=== PATIENT | female | born 1985 ===

== ENCOUNTER 2016-11-11 02:05 | Emergency (ER) | payer MEDICAID, SELFPAY ==
[2016-11-11 02:41] VITALS: BMI 25.9
[2016-11-11 02:59] LABS: RBC URINE 2 /hpf (0-3); URINE BACTERIA RARE (<OCC); URINE BILIRUBIN NEGATIVE (NEGATIVE); URINE BLOOD NEGATIVE (NEGATIVE); URINE COLOR Straw (YELLOW); URINE GLUCOSE (UA) NORMAL (Normal); URINE KETONE NEGATIVE (NEGATIVE); URINE LEUKOCYTE ESTERASE 3+ Leu/uL (Negative); URINE PROTEIN NEGATIVE (NEGATIVE); URINE UROBILINOGEN NORMAL mg/dL (0.2-1.0); WBC URINE 71 /hpf (0-5)
--- NOTE | 2016-11-11 03:41 | OBHP ---
Datetime: 11/11/2016 02:55 IP Adm Impression: Term, intrauterine ; No Active Labor IP Admit Plan: Observation/Evaluation Admit Comment, IP Provider: IUP at 37.5 wks presents here today c/o maternal discomfort with some pe lvic cramps. She denies any VB or LOF. Care at [facility]. [place]- Occasional intermittent contractions, FHR- Category 1, Cx- Ft/30/-3 Assessment: IUP at 37wks with Infrequent contractions. UTI Plan: UA Recheck in 1 hour for labor. Pt reexamined after 1 hour, No cervical chane. UA- LE 3+. Pt reports she is currently taking Keflex for UTI. She was asked to continue taking the antibiotic s and f/u with regular OB. Labor instructions given. Plan: D/C Home.am Extremities - PN: Normal Abdomen - PN: Normal Back - PN: Normal Lungs - PN: Normal Heart - PN: Normal Neurologic - PN: Normal General - PN: Normal Presentation-Admit: Vertex FHR - Baseline A Provider: 130s Membranes, Provider: Intact Contraction Comments Provider: Irregular Comments, ACOG Physical Exam: Abd: Soft, NT, BS- present Gestation - Est Wks by US: 37.5 EGA AdmitDate IP: 37.5 Vital Signs Provider: Reviewed IP Chief Complaint: Maternal discomfort NICHD Variability Prov Fetus A: Moderate 6-25bpm NICHD Accel Fetus A IP Provider: 15X15 FHR Category Provider Fetus A: Category I NICHD Decel Fetus A IP Provider: None Dilatation, Provider: FT Effacement, Provider: 30 Station, Provider: -3 Genitourinary Exam: Normal
== END 2016-11-11 03:44 | disposition home or self-care (01) ==
LOC: C.EROB 02:05
DX: O26.893 Other specified pregnancy related conditions, third trimester (principal); O23.43 Unspecified infection of urinary tract in pregnancy, third trimester; Z3A.37 37 weeks gestation of pregnancy

== ENCOUNTER 2016-11-15 10:37 | Inpatient (IN) | payer MEDICAID ==
[2016-11-15] MEDS ORDERED: Lactated Ringer's 1,000 ML IV SCH (11:00)
[2016-11-15] MEDS ORDERED: Oxytocin 20 units in LR 2,000 ML IV ONE (11:11)
[2016-11-15] MEDS ORDERED: Lidocaine 2% Inj (20ml) ONE (11:11)
--- NOTE | 2016-11-15 11:21 | OBADHP ---
Datetime: 11/15/2016 11:14 Admit Comment, IP Provider: chief compalint-contractions HPI 31 y/o at 38.2 wga with c/o contractions.patient denies nausea, vomiting, headache, chest pain, shortness of breath, numbness or tingling in hands and feet course uncomplcated; UTI in october 2016 PMH denies PSH cholecystectomy OBGYN HX ; NVDX2 Social hx denies tobacco,alcohol or illicit drug use Exam see exam section A/P 31 y/o at 38.2 wga in labor.GBS negative -see orders Pelvic Type - PN: Adequate Extremities - PN: Normal Abdomen - PN: Normal Back - PN: Normal Lungs - PN: Normal Heart - PN: Normal Neurologic - PN: Normal General - PN: Normal Weight - Estimated: 3200 Presentation-Admit: Vertex FHR - Baseline A Provider: 150 Contraction Comments Provider: irregular Gestation - Est Wks by US: 38.2 IP Hx Assessment: The History has been Reviewed and is Current Vital Signs Provider: Reviewed; Within Normal Limits IP Chief Complaint: Uterine contractions NICHD Variability Prov Fetus A: Moderate 6-25bpm NICHD Decel Fetus A IP Provider: None Dilatation, Provider: 7-8 Effacement, Provider: 90 Station, Provider: 0 Genitourinary Exam: Normal DTRs - PN: Normal EGA AdmitDate IP: 38.2 IP Adm Impression: Term, intrauterine ; Active labor IP Admit Plan: Admit to unit Datetime: 11/11/2016 02:55 Membranes, Provider: Intact Comments, ACOG Physical Exam: Abd: Soft, NT, BS- present NICHD Accel Fetus A IP Provider: 15X15 FHR Category Provider Fetus A: Category I
[2016-11-15 11:46] LABS: BASO % 0.2 % (0.0-2.0); EOS % 0.2 % (0.0-4.0); HEMATOCRIT 35.8 % (34.0-47.0); LYMPH # 3.2 K/uL (1.0-4.3); LYMPH % 34.7 % (20.0-40.0); MEAN CELL VOLUME 78.6 fL (81.0-99.0); MEAN CORPUSCULAR HEMOGLOBIN 24.1 pg (27.0-31.0); MEAN CORPUSCULAR HGB CONC 30.6 g/dL (33.0-37.0); MONO # 0.5 K/uL (0.0-0.8); MONO % 5.7 % (0.0-10.0); NRBC % 0.1 % (0.0-2.0); RED CELL DISTRIBUTION WIDTH 16.9 % (11.5-14.5); WHITE BLOOD COUNT 9.3 K/uL (4.8-10.8)
--- NOTE | 2016-11-15 12:04 | OBDS ---
DELIVERY PERSONNEL Delivery Doctor: Reuben Soriano MD Scrub Nurse: Laxmi Li Quality Technician: Annie White RN MATERNAL INFORMATION Delivery Anesthesia: None Medications in Delivery: Pitocin 20 units IV Estimated Blood Loss (ml): 300 Placenta Cultured: No Maternal Complications: None RN Comments: 9-9.Liveborn Baby Girl. Provider Comments: of female from KAMRAN position.Body and shoulders delivered without diffi culty.Cord clamped and cut.cord blood collected.Placenta spontaneously delivered .first degree perien al laceration repaured with 2-0 chromic.Fundus firm.patient stable .apgars 9/9 at 1 and 5 minof life LABOR SUMMARY EDC: 11/27/2016 00:00 No. Babies in Womb: 1 Attempted: No Labor Anesthesia: None LABOR INFORMATION Reason for Induction: Not Applicable Onset of Labor: 11/14/2016 21:00 Complete Dilatation: 11/15/2016 11:45 Oxytocin: N/A Group B Beta Strep: Negative Antibiotics # of Doses: 9 Antibiotics Time of Last Dose: 9 Steroids Given: None Reason Steroids Not Administered: Not Applicable MEMBRANES Membranes Rupture Method: Spontaneous Rupture of Membranes: 11/15/2016 11:44 Length of Rupture (hrs): 0.10 Amniotic Fluid Color: Clear Amniotic Fluid Amount: Moderate Amniotic Fluid Odor: Normal STAGES OF LABOR Stage 1 hrs: 14 Stage 1 min: 45 Stage 2 hrs: 0 Stage 2 min: 5 Stage 3 hrs: 0 Stage 3 min: 7 Total Time in Labor hrs: 14 Total Time in Labor min: 57 VAGINAL DELIVERY Episiotomy: None Laceration Extension: First Degree Laceration Type: Perineal Laceration Repair: Yes Laceration Repair Note: first degree perienal laceration repaured with 2-0 chromic Initial Vag Sponge Count: 10 Final Vag Sponge Count: 10 Initial Vag Sharps Count: 3 Final Vag Sharps Count: 3 Sponge Count Correct: Yes; Vaginal Sweep Performed Sharps Count Correct: Yes Count Comment: 2 needle + 1 suture needle CSECTION DELIVERY Primary Indication: N/A Secondary Indication: N/A CSection Urgency: N/A CSection Incidence: N/A Labor: N/A Elective: N/A CSection Incision: N/A BABY A INFORMATION Delivery Date/Time: 11/15/2016 11:50 Method of Delivery: Vaginal Born in Route : No : N/A Forceps: N/A Vacuum Extraction: N/A Shoulder Dystocia : No SHOULDER DYSTOCIA BABY A Infant Delivery Date/Time: 11/15/2016 11:50 PRESENTATION/POSITION BABY A Presentation: Cephalic Cephalic Presentation: Vertex Vertex Position: Right Occipital Anterior Breech Presentation: N/A PLACENTA INFORMATION BABY A Placenta Delivery Time : 11/15/2016 11:57 Placenta Method of Delivery: Spontaneous Placenta Status: Delivered SCORES BABY A Heart Rate 1 min: >100 bpm Resp Effort 1 min: Good Cry Reflex Irritability 1 min: Cough or Sneeze or Pulls Away Muscle Tone 1 min: Active Motion Color 1 min: Body [place], Extremities Blue Resuscitation Effort 1 min: N/A SCORE 1 MIN: 9 Heart Rate 5 min: >100 bpm Resp Effort 5 min: Good Cry Reflex Irritability 5 min: Cough or Sneeze or Pulls Away Muscle Tone 5 min: Active Motion Color 5 min: Body [place], Extremities Blue Resuscitation Effort 5 min: N/A SCORE 5 MIN: 9 INFANT INFORMATION BABY A Gestational Age at Delivery: 38.2 Gestational Status: Term Outcome : Liveborn Infant Condition : Stable Sex: Female IDENTIFICATION/MEDS BABY A ID Band Number: [id number] ID Band Location: Left Leg; Left Arm Sensor Applied: Yes Sensor Number: [id number] Sensor Location : Cord Clamp Vitamin K Given : Not Given Erythromycin Given: Not Given WEIGHT/LENGTH BABY A Infant Birthweight (gms): 2790 Weight (lb): 6 Infant Weight (oz): 2 Length Inches: 19.00 Infant Length cms: 48.3 CORD INFORMATION BABY A No. Cord Vessels: 3 Nuchal Cord : N/A Cord Blood Taken: Yes Infant Suction: Mouth; Nose ASSESSMENT BABY A Complications: None Physical Findings at Delivery: Within Normal Limits Respirations: Appears Normal Senior Dentist/ALS Called : No Care By: Kanchan GRESHAM Transferred To: Nursery
[2016-11-15] MEDS ORDERED: Oxycodone/Acetaminophen 5/325 mg Tab PO PRN ×2 (12:06)
[2016-11-15] MEDS ORDERED: Benzocaine/Menthol 20%-0.5% Topical Spray (60 ml) TOP PRN (12:06)
[2016-11-16 07:37] LABS: BASO % 0.3 % (0.0-2.0); EOS % 0.2 % (0.0-4.0); LYMPH # 2.7 K/uL (1.0-4.3); LYMPH % 25.2 % (20.0-40.0); MEAN CELL VOLUME 78.8 fL (81.0-99.0); MEAN CORPUSCULAR HEMOGLOBIN 24.6 pg (27.0-31.0); MEAN CORPUSCULAR HGB CONC 31.2 g/dL (33.0-37.0); MEAN PLATELET VOLUME 9.6 fL (7.2-11.7); MONO # 0.6 K/uL (0.0-0.8); MONO % 5.9 % (0.0-10.0); RED CELL DISTRIBUTION WIDTH 17.4 % (11.5-14.5); WHITE BLOOD COUNT 10.8 K/uL (4.8-10.8)
[2016-11-16] MEDS: Multiple Vitamins Tab PO SCH (09:28)
--- NOTE | 2016-11-16 16:39 | OBPPN ---
Datetime: 11/16/2016 16:30 PP Pain Prov: Within normal limits PP Nausea Prov: Denies PP Flatus Prov: Yes PP BM Prov: No PP Breasts Prov: Normal PP Heart Prov: Normal PP Lungs Prov: Normal PP Abdomen/Uterus Prov: Normal PP Lochia Prov: Normal PP Vulva/Perineum Prov: Normal PP CVA Tenderness Prov: Normal PP Extremities Prov: Normal PP C/S Incision Prov: Not Applicable PP Progress Prov: Normal PP Comments Phys Exam Prov: Skin: warm, dry, intact Breasts: no cracked nipples Abdomen: Soft, Fundus firm, mobile, non tender, 18 weeks. Mild lochia rubra Extremities: no calf tenderness, cyanosis or edema All ohter systems reviewed and are negative PP Impression Prov: Normal progression PP Progress Note Prov: Patient seen and evaluated approximately 0845 hours. exclusivel y. Denies nausea, vomiting; dizziness, palpitations. Voiding and ambulating. P.E.: as above. Small-framed, in NAD. Awake, alert, oriented to time, person and place - PPD#1 .. Rh(+) Assessment: PPD#1, 31 y.o. P3013, S/P . Afebrile, vital signs stable. Anemia noted; asymtomati c and hemodynamically stable. Clinically stable Plan: 1) Continue iron 2) Anticipate discharge home 11/17/16 Vital Signs Provider PP: Reviewed; Within Normal Limits
[2016-11-17 08:02] VITALS: BP 107/69; PULSE 79; RESP 18; TEMP 98.5; O2SAT 99
--- NOTE | 2016-11-17 09:10 | OBPPN ---
Datetime: 11/17/2016 09:03 PP Pain Prov: Within normal limits PP Nausea Prov: Denies PP Flatus Prov: No PP BM Prov: No PP Breasts Prov: Normal PP Heart Prov: Normal PP Lungs Prov: Normal PP Abdomen/Uterus Prov: Normal PP Lochia Prov: Normal PP Vulva/Perineum Prov: Not Done PP CVA Tenderness Prov: Normal PP Extremities Prov: Normal PP C/S Incision Prov: Not Applicable PP Progress Prov: Normal PP Comments Phys Exam Prov: Sklin: warm, dry, intact. Abdomen: Non distended. Soft. (+) ABS. Fundus firm, mobile, non tender, 16 weeks. Minimal lochia rybra Extremities: no calf tenderness All other systems reviewed and are negative PP Impression Prov: Normal progression PP Plan Prov: Discharge PP Progress Note Prov: Patietn received sitting up in chair, in room 454; anxious to go home. Breasa tfeeding exclusively . Denies headaches, chest pain, dizziness, lightheadedness or palpitations P.E.: as above. Small, in NAD. Awake, alert, oriented to time, person and place Assessment: PPD#2, 31 yo P3013, S/P . Afebrile, vital signs stable. Anemic - asymptomatic and hemodynamically stable. Desires OCs for contraception. Clinically stable. Plan: 1) Discharge home 2) See full discharge instructions Vital Signs Provider PP: Reviewed; Within Normal Limits
--- NOTE | 2016-11-17 09:12 | OBDCSUM ---
Datetime: 11/11/2016 03:44 Disch Instr Activity: Normal activity; May be up to bathroom; May be up for meals; May Shower Discharge Diagnosis, Provider: Term Delivered Follow up in weeks, Provider: 6 weeks Contraception discussed, Prov: Yes Disch Activity Restrictions: No lifting; No sexual activity; Nothing in vagina - [place], tampon s, douche Discharge Diagnosis Prov Other: Anemia Contraception counseling Contraception after Delivery: Control Pill/Patch
[2016-11-17] MEDS: Multiple Vitamins Tab PO SCH (09:30)
== END 2016-11-17 11:00 | disposition home or self-care (01) | DRG 372 ==
LOC: C.EROB 10:37 → C.4D 11:03 → C.4M 13:53
PROVIDERS: ADMIT Student in an Organized Health Care Education/Training Program; ATTEND Student in an Organized Health Care Education/Training Program
PROC: 10E0XZZ Delivery of Products of Conception, External Approach (ICD-10-PCS; principal; 2016-11-15)
PROC: 0HQ9XZZ Repair Perineum Skin, External Approach (ICD-10-PCS; 2016-11-15)
DX: O75.3 Other infection during labor (principal); O90.81 Anemia of the puerperium; O70.0 First degree perineal laceration during delivery; Z3A.38 38 weeks gestation of pregnancy; Z37.0 Single live birth

== ENCOUNTER 2018-10-15 15:47 | Observation (INO) | payer MEDICAID, OTHER ==
[2018-10-15 15:47] VITALS: BMI 25.9
--- NOTE | 2018-10-15 16:54 | C.PDOC ---
History Of Present Illness Patient is a 33 year old female, s/p cholecystectomy in 2009, who presents to the ED c/o pain that wraps around right flank to right groin area. Patient rates the pain as an 8/10 and says it is increased with movement and walking. She denies any nausea, vomiting, diarrhea, fever, chills, hematuria, dysuria, cough, runny nose, or congestion. Time Seen by Provider: 10/15/18 16:27 Chief Complaint (Nursing): Abdominal Pain History Per: Patient History/Exam Limitations: no limitations Pain Scale Rating Of: 8 Quality Of Discomfort: "Pain" Associated Symptoms: denies: Fever, Chills, Nausea, Vomiting, Diarrhea, Urinary Symptoms Exacerbating Factors: Movement, Walking Past Medical History Reviewed: Historical Data, Nursing Documentation, Vital Signs Vital Signs: Last Vital Signs Temp 98.6 F 10/15/18 15:56 Pulse 86 10/15/18 15:56 Resp 16 10/15/18 15:56 BP 101/65 10/15/18 15:56 Pulse Ox 100 10/15/18 15:56 - Medical History PMH: No Chronic Diseases Surgical History: Cholecystectomy - [facility] Procedures DELIVERY OF PRODUCTS OF CONCEPTION, EXTERNAL APPROACH (11/15/16) EPISIOTOMY (12/26/14) REPAIR PERINEUM SKIN, EXTERNAL APPROACH (11/15/16) Family History: States: No Known Family Hx - Social History Hx Tobacco Use: No Hx Alcohol Use: No Hx Substance Use: No - Immunization History Hx Tetanus Toxoid Vaccination: No Hx Influenza Vaccination: No Hx Pneumococcal Vaccination: No Review Of Systems Constitutional: Negative for: Fever, Chills ENT: Negative for: Nose Discharge, Nose Congestion Respiratory: Negative for: Cough Gastrointestinal: Positive for: Other (pain wrapping from right flank to right groin ). Negative for: Nausea, Vomiting, Diarrhea Genitourinary: Negative for: Dysuria, Hematuria Physical Exam - Physical Exam Appears: Non-toxic, No Acute Distress, Other (alert and awake ) Skin: Warm, Dry Head: Atraumatic, Normacephalic Oral Mucosa: Moist Neck: Normal ROM, Supple Cardiovascular: Rhythm Regular, No Murmur Respiratory: Normal Breath Sounds, No Rales, No Rhonchi, No Wheezing Gastrointestinal/Abdominal: Soft, Tenderness (LRQ tenderness below McBurney's point) Back: Vertebral Tenderness (slight costovertebral angle tenderness ) Pelvic: Normal External Exam, No Vaginal Bleeding, No Vaginal Discharge, No Cervical Motion Tenderness, No Adnexal Tenderness Extremity: Normal ROM Neurological/Psych: Oriented x3 ED Course And Treatment - Laboratory Results Result Diagrams: 10/15/18 17:17 10/15/18 17:17 O2 Sat by Pulse Oximetry: 100 (on RA) Pulse Ox Interpretation: Normal Medical Decision Making Medical Decision Making: Plan: CAT A&P Urine Culture IV FLuids Toradol 30mg IVp Omnipaque 50ml PO Differential diagnosis: appendicitis vs. ovarian pathology Disposition - Disposition Disposition Time: 18:42 Condition: STABLE Forms: [employer] (Japanese) - Clinical Impression Clinical Impression: Abdominal pain - Scribe Statement The provider has reviewed the documentation as recorded by the Scribtano Bain All medical record entries made by the Scribe were at my direction and personally dictated by me. I have reviewed the chart and agree that the record accurately reflects my personal performance of the history, physical exam, medical decision making, and the department course for this patient. I have also personally directed, reviewed, and agree with the discharge instructions and disposition. Physician Patient Turnover Patient Signed Over To: Steven Low Handoff Comments: Patient pending CT abdomen, r/o appe vs renal colic vs INDUSTRIAL ENGINEERING DIRECTOR pathology
[2018-10-15] MEDS ORDERED: Iohexol 240 (50 ml) PO STA (17:03)
[2018-10-15] MEDS ORDERED: Sodium Chloride 0.9% 1,000 ML IV ONE (17:03)
[2018-10-15 17:21] LABS: BASO % 0.2 % (0.0-2.0); EOS % 0.4 % (0.0-4.0); HEMOGLOBIN 11.6 g/dL (11.0-16.0); LYMPH # 2.9 K/uL (1.0-4.3); LYMPH % 30.4 % (20.0-40.0); MEAN CELL VOLUME 83.3 fL (81.0-99.0); MEAN CORPUSCULAR HGB CONC 32.3 g/dL (33.0-37.0); MEAN PLATELET VOLUME 9.4 fL (7.2-11.7); MONO # 0.6 K/uL (0.0-0.8); MONO % 5.9 % (0.0-10.0); NEUT % 63.1 % (50.0-75.0); RBC 4.31 Mil/uL (3.80-5.20); WHITE BLOOD COUNT 9.4 K/uL (4.8-10.8)
[2018-10-15 17:30] LABS: HCG,QUALITATIVE URINE NEGATIVE (NEGATIVE); SQUAMOUS EPITHIAL 2 /hpf (0-5); URINE BACTERIA RARE (<OCC); URINE BILIRUBIN NEGATIVE (NEGATIVE); URINE BLOOD 1+ (NEGATIVE); URINE CLARITY Clear (Clear); URINE COLOR Yellow (YELLOW); URINE GLUCOSE (UA) NORMAL (Normal); URINE LEUKOCYTE ESTERASE NEG Leu/uL (Negative); URINE PROTEIN NEGATIVE (NEGATIVE)
[2018-10-15 17:35] LABS: ALB/GLOB RATIO 1.4 (1.0-2.1); ALBUMIN 4.2 g/dL (3.5-5.0); ALT/SGPT 9 U/L (9-52); AST/SGOT 14 U/L (14-36); BLOOD UREA NITROGEN 6 mg/dL (7-17); CALCIUM 8.3 mg/dl (8.6-10.4); GFR NON-AFRICAN AMERICAN > 60
[2018-10-15] MEDS ORDERED: Iohexol 240 (50 ml) ONE (17:41)
[2018-10-15] MEDS ORDERED: Iohexol 350mg/ml 100 ML ONE (17:48)
--- NOTE | 2018-10-15 22:24 | CP.PCM.CON ---
History of Present Illness - History of Present Illness History of Present Illness: SURGERY CONSULT NOTE FOR DR. CARRINGTON 33F presents with abdominal pain. Patient states pain has been ongoing since yesterday. She states the pain is in the epigastric region and radiates to the right abdomen. She denies any nausea or vomiting. She denies any fevers or chills. Patient has been eating fine and tolerating diet. She has been having normal bowel function. Denies any history of constipation or diarrhea. She had three children and is currently breast feeding. She has never had these symptoms before like this. PMH: Denies PSH: Open Cholecystectomy 2009 Social: denies tobacco, alcohol and illicit drug use Allergies: NKDA Past Patient History - Infectious Disease Hx of Infectious Diseases: None - Past Social History Smoking Status: Never Smoked - PSYCHIATRIC Hx Substance Use: No - SURGICAL HISTORY Hx Cholecystectomy: Yes - ANESTHESIA Hx Anesthesia: Yes Hx Anesthesia Reactions: No Meds Allergies/Adverse Reactions: Allergies Allergy/AdvReac Type Severity Reaction Status Date / Time No Known Allergies Allergy Verified 10/15/18 15:56 Physical Exam - Constitutional Appears: Non-toxic, No Acute Distress - Eye Exam Eye Exam: EOMI, PERRL - Respiratory Exam Respiratory Exam: Clear to Auscultation Bilateral, NORMAL BREATHING PATTERN - Cardiovascular Exam Cardiovascular Exam: REGULAR RHYTHM, +S1, +S2 - GI/Abdominal Exam GI & Abdominal Exam: Soft, Tenderness (Epigastric). absent: Distended, Firm, Guarding, Rebound, Rigid Additional comments: donna incision scar healed - Extremities Exam Extremities exam: Negative for: pedal edema, tenderness - Neurological Exam Neurological exam: Alert, Oriented x3 - Psychiatric Exam Psychiatric exam: Normal Affect, Normal Mood - Skin Skin Exam: Dry, Intact, Normal Color, Warm Results - Vital Signs Recent Vital Signs: Last Vital Signs Temp 98.2 F 10/15/18 21:01 Pulse 78 10/15/18 21:01 Resp 18 10/15/18 21:01 BP 96/60 L 10/15/18 21:01 Pulse Ox 98 10/15/18 21:01 - Labs Result Diagrams: 10/15/18 17:17 10/15/18 17:17 Labs: Laboratory Results - last 24 hr 10/15/18 10/15/18 10/15/18 17:17 17:17 17:17 WBC 9.4 RBC 4.31 Hgb 11.6 Hct 35.9 MCV 83.3 D MCH 27.0 MCHC 32.3 L RDW 15.0 H Plt Count 262 MPV 9.4 Neut % (Auto) 63.1 Lymph % (Auto) 30.4 Wirt % (Auto) 5.9 Eos % (Auto) 0.4 Baso % (Auto) 0.2 Neut # (Auto) 6.0 Lymph # (Auto) 2.9 Wirt # (Auto) 0.6 Eos # (Auto) 0.0 Baso # (Auto) 0.0 Sodium 136 Potassium 3.6 Chloride 100 Carbon Dioxide 28 Anion Gap 12 BUN 6 L Creatinine 0.4 L Est GFR ( Amer) > 60 Est GFR (Non-Af Amer) > 60 Random Glucose 90 Calcium 8.3 L Total Bilirubin 0.4 AST 14 ALT 9 D Alkaline Phosphatase 93 Total Protein 7.2 Albumin 4.2 Globulin 3.0 Albumin/Globulin Ratio 1.4 Urine Color Yellow Urine Clarity Clear Urine pH 7.0 Ur Specific [place] 1.005 Urine Protein Negative Urine Glucose (UA) Normal Urine Ketones Negative Urine Blood 1+ H Urine Nitrate Negative Urine Bilirubin Negative Urine Urobilinogen 2.0 H Ur Leukocyte Esterase Neg Urine WBC (Auto) < 1 Urine RBC (Auto) < 1 Ur Squamous Epith Cells 2 Urine Bacteria Rare Urine HCG, Qual Negative Assessment & Plan - Assessment and Plan (Free Text) Assessment: 33F with abdominal pain CT: intussusception, 2.1*2.3cm Pancreatic head lesion with dilation of distal BCD Plan: Regular diet Pain control Will need Ultrasound Will need CT Pancreatic protocol vs MRI GI consult necessary Explain to the patient her diagnosis and planned course of action including staying inpatient however she states she has nobody to watch her children at home and will prefer to come back for further evaluation. Further recs per Dr. Clyde Valle, PGY3
[2018-10-16] MEDS ORDERED: Morphine 4 MG/ML VIAL ONE (00:10)
[2018-10-16 01:55] VITALS: RESP 20
[2018-10-16] MEDS ORDERED: Gadodiamide 287 mg/ml 20 ml IV ONE (03:55)
[2018-10-16] MEDS ORDERED: Sodium Chloride 0.9% 1,000 ML IV ONE (05:23)
--- NOTE | 2018-10-16 06:08 | CP.PCM.HP ---
<Iza Mike P - Last Filed: 10/16/18 15:31> History of Present Illness - History of Present Illness History of Present Illness: H&P for Dr. Wright. 33 year old female presents to the ED complaining of severe R flank pain radiating to the RUQ that began 2 days ago. Pain is sharp and rated 8/10. Pain worsens with walking. She did not take anything at home for the pain. Patient states she had a similar pain years back when she was told that she had an inflamed pancreas. Pain is associated with chills. Patient denies fever, nausea, vomiting, diarrhea, constipation, hematochezia, melena, dysuria, hematuria, frequency, headache, dizziness, chest pain, palpitations and any other symptoms. PMHx: Past episode of pancreatitis PSHx: Denies Meds: none Allergies: NKDA Social: Denies tobacco, alcohol and illicit drugs. Family Hx: mother-HTN Review of Systems: -Gen: No fever, + chills, No headache, No lethargy, No weakness. -HEENT: No dizziness, No change in vision, No change in hearing, No sore throat, No dysphagia, No nasal congestion, No mucous. -Cardio: No chest pain, No palpitations, No lower extremity edema, No orthopnea. -Resp: No cough, No dyspnea, No hemoptysis, No wheezing, No pain on inspiration. -GI: + abdominal pain, No nausea/vomiting, No diarrhea/constipation, No hematochezia, No hematemesis. -: No dysuria, No urinary freq, No incontinence, No hematuria, No change in urinary stream. -MSK: No back pain, No muscle weakness, No radiating pain. -Skin: No itching, No rash, No lesions. -Neuro: No confusion, No numbness, No tingling, No focal weakness, No radicular pain, No syncope. Present on Admission - Present on Admission Any Indicators Present on Admission: No Past Patient History - Infectious Disease Hx of Infectious Diseases: None - Past Social History Smoking Status: Never Smoked - PSYCHIATRIC Hx Substance Use: No - SURGICAL HISTORY Hx Cholecystectomy: Yes - ANESTHESIA Hx Anesthesia: Yes Hx Anesthesia Reactions: No Meds Allergies/Adverse Reactions: Allergies Allergy/AdvReac Type Severity Reaction Status Date / Time No Known Allergies Allergy Verified 10/15/18 15:56 Physical Exam - Head Exam Head Exam: ATRAUMATIC, NORMOCEPHALIC - Eye Exam Eye Exam: EOMI, Normal appearance, PERRL - ENT Exam ENT Exam: Mucous Membranes Moist, Normal Exam - Neck Exam Neck exam: Positive for: Full Rom, Normal Inspection - Respiratory Exam Respiratory Exam: Clear to Auscultation Bilateral, NORMAL BREATHING PATTERN. absent: Rales, Rhonchi, Wheezes - Cardiovascular Exam Cardiovascular Exam: REGULAR RHYTHM, +S1, +S2 - Extremities Exam Extremities exam: Positive for: normal inspection, pedal pulses present. Negative for: calf tenderness, pedal edema, tenderness - Neurological Exam Neurological exam: Alert, CN II-XII Intact, Oriented x3 - Psychiatric Exam Psychiatric exam: Normal Affect, Normal Mood - Skin Skin Exam: Dry, Normal Color, Warm Additional comments: No jaundice Results - Vital Signs Recent Vital Signs: Last Vital Signs Temp 98.4 F 10/16/18 01:50 Pulse 71 10/16/18 01:50 Resp 20 10/16/18 01:50 BP 100/59 L 10/16/18 01:50 Pulse Ox 97 10/16/18 01:50 - Labs Result Diagrams: 10/16/18 06:41 10/16/18 06:41 Labs: Laboratory Results - last 24 hr 10/15/18 10/15/18 10/15/18 17:17 17:17 17:17 WBC 9.4 RBC 4.31 Hgb 11.6 Hct 35.9 MCV 83.3 D MCH 27.0 MCHC 32.3 L RDW 15.0 H Plt Count 262 MPV 9.4 Neut % (Auto) 63.1 Lymph % (Auto) 30.4 [place] % (Auto) 5.9 Eos % (Auto) 0.4 Baso % (Auto) 0.2 Neut # (Auto) 6.0 Lymph # (Auto) 2.9 [place] # (Auto) 0.6 Eos # (Auto) 0.0 Baso # (Auto) 0.0 Sodium 136 Potassium 3.6 Chloride 100 Carbon Dioxide 28 Anion Gap 12 BUN 6 L Creatinine 0.4 L Est GFR ( Amer) > 60 Est GFR (Non-Af Amer) > 60 Random Glucose 90 Calcium 8.3 L Total Bilirubin 0.4 AST 14 ALT 9 D Alkaline Phosphatase 93 Total Protein 7.2 Albumin 4.2 Globulin 3.0 Albumin/Globulin Ratio 1.4 Urine Color Yellow Urine Clarity Clear Urine pH 7.0 Ur Specific Backus 1.005 Urine Protein Negative Urine Glucose (UA) Normal Urine Ketones Negative Urine Blood 1+ H Urine Nitrate Negative Urine Bilirubin Negative Urine Urobilinogen 2.0 H Ur Leukocyte Esterase Neg Urine WBC (Auto) < 1 Urine RBC (Auto) < 1 Ur Squamous Epith Cells 2 Urine Bacteria Rare Urine HCG, Qual Negative Assessment & Plan - Assessment and Plan (Free Text) Assessment: 33 year old female admitted for pancreatic mass, CBD dilation, and intussception. Plan: Pancreatic mass CBD dilation Intussception -CT abdomen: -Abd US: f/u official read -Surgery, Dr. Tang consulted -GI, Dr. Baker consulted -F/u AM labs -NS @ 100 mls/hr -Hydromorphone 0.5mg IVP Q6H PRN PPx -SCDs -NPO -GI not indicated at this time Discussed with Dr. Wright. Iza Mike, PGY-1. <Yao Wright - Last Filed: 10/16/18 19:07> Results - Vital Signs Recent Vital Signs: Last Vital Signs Temp 98.3 F 10/16/18 16:30 Pulse 83 10/16/18 16:30 Resp 20 10/16/18 16:30 BP 103/63 10/16/18 16:30 Pulse Ox 100 10/16/18 16:30 - Labs Result Diagrams: 10/16/18 06:41 10/16/18 06:41 Labs: Laboratory Results - last 24 hr 10/16/18 10/16/18 10/16/18 06:41 06:41 09:45 WBC 6.1 RBC 3.55 L Hgb 9.7 L Hct 29.8 L MCV 84.0 MCH 27.3 MCHC 32.5 L RDW 15.2 H Plt Count 209 MPV 9.7 Neut % (Auto) 50.9 Lymph % (Auto) 41.3 H [place] % (Auto) 6.8 Eos % (Auto) 0.8 Baso % (Auto) 0.2 Neut # (Auto) 3.1 Lymph # (Auto) 2.5 [place] # (Auto) 0.4 Eos # (Auto) 0.1 Baso # (Auto) 0.0 PT 12.7 H INR 1.2 APTT 34 Sodium 136 Potassium 3.3 L Chloride 106 Carbon Dioxide 22 Anion Gap 12 BUN 6 L Creatinine 0.4 L Est GFR ( Amer) > 60 Est GFR (Non-Af Amer) > 60 Random Glucose 75 Lactic Acid Calcium 7.2 L Phosphorus 2.9 Magnesium 2.1 Iron TIBC % Saturation Ferritin 9.2 Total Bilirubin 0.4 AST 13 L ALT 13 Alkaline Phosphatase 71 Total Protein 5.6 L Albumin 3.0 L D Globulin 2.6 Albumin/Globulin Ratio 1.1 Lipase 27 Alpha Fetoprotein CA 19-9 Antigen 8.2 Vitamin B12 < 159 L Folate > 20.0 Hepatitis A IgM Ab Hep Bs Antigen Hep B Core IgM Ab Hepatitis C Antibody HIV 1&2 Antibody Screen 10/16/18 10/16/18 10/16/18 09:45 09:45 13:30 WBC RBC Hgb Hct MCV MCH MCHC RDW Plt Count MPV Neut % (Auto) Lymph % (Auto) [place] % (Auto) Eos % (Auto) Baso % (Auto) Neut # (Auto) Lymph # (Auto) [place] # (Auto) Eos # (Auto) Baso # (Auto) PT INR APTT Sodium Potassium Chloride Carbon Dioxide Anion Gap BUN Creatinine Est GFR ( Amer) Est GFR (Non-Af Amer) Random Glucose Lactic Acid 0.8 Calcium Phosphorus Magnesium Iron 27 L TIBC 369 % Saturation 7 L Ferritin Total Bilirubin AST ALT Alkaline Phosphatase Total Protein Albumin Globulin Albumin/Globulin Ratio Lipase Alpha Fetoprotein 0.9 CA 19-9 Antigen Vitamin B12 Folate Hepatitis A IgM Ab Hep Bs Antigen Hep B Core IgM Ab Hepatitis C Antibody HIV 1&2 Antibody Screen Negative 10/16/18 13:47 WBC RBC Hgb Hct MCV MCH MCHC RDW Plt Count MPV Neut % (Auto) Lymph % (Auto) [place] % (Auto) Eos % (Auto) Baso % (Auto) Neut # (Auto) Lymph # (Auto) [place] # (Auto) Eos # (Auto) Baso # (Auto) PT INR APTT Sodium Potassium Chloride Carbon Dioxide Anion Gap BUN Creatinine Est GFR ( Amer) Est GFR (Non-Af Amer) Random Glucose Lactic Acid Calcium Phosphorus Magnesium Iron TIBC % Saturation Ferritin Total Bilirubin AST ALT Alkaline Phosphatase Total Protein Albumin Globulin Albumin/Globulin Ratio Lipase Alpha Fetoprotein CA 19-9 Antigen Vitamin B12 Folate Hepatitis A IgM Ab Negative Hep Bs Antigen Negative Hep B Core IgM Ab Negative Hepatitis C Antibody Negative HIV 1&2 Antibody Screen Assessment & Plan - Date & Time Date: 10/16/18 (I have seen and examined the patient. I agree with the findings and plan of care as documented by Dr. Mike. Patient with intussusception, abdominal pain, CBD dilatation, and pancreatic mass seen on CT. Consult to surgery and GI. Symptomatic treatment. Monitor for acute changes.) Time: 19:06 Attending/Attestation - Attestation I have personally seen and examined this patient.: Yes I have fully participated in the care of the patient.: Yes I have reviewed all pertinent clinical information: Yes
[2018-10-16] MEDS ORDERED: Sodium Chloride 0.9% 1,000 ML IV SCH (06:30)
[2018-10-16 06:52] LABS: BASO % 0.2 % (0.0-2.0); EOS # 0.1 K/uL (0.0-0.7); EOS % 0.8 % (0.0-4.0); HEMOGLOBIN 9.7 g/dL (11.0-16.0); LYMPH # 2.5 K/uL (1.0-4.3); LYMPH % 41.3 % (20.0-40.0); MEAN CORPUSCULAR HEMOGLOBIN 27.3 pg (27.0-31.0); MEAN CORPUSCULAR HGB CONC 32.5 g/dL (33.0-37.0); MEAN PLATELET VOLUME 9.7 fL (7.2-11.7); MONO # 0.4 K/uL (0.0-0.8); MONO % 6.8 % (0.0-10.0); NEUT # 3.1 K/uL (1.8-7.0); NEUT % 50.9 % (50.0-75.0); RBC 3.55 Mil/uL (3.80-5.20); RED CELL DISTRIBUTION WIDTH 15.2 % (11.5-14.5); WHITE BLOOD COUNT 6.1 K/uL (4.8-10.8)
--- NOTE | 2018-10-16 07:33 | CP.PCM.PN ---
<Sydnie Palacio V - Last Filed: 10/16/18 17:44> Objective - Vital Signs/Intake and Output Vital Signs (last 24 hours): Temp Pulse Resp BP Pulse Ox 98.3 F 83 20 103/63 100 10/16/18 16:30 10/16/18 16:30 10/16/18 16:30 10/16/18 16:30 10/16/18 16:30 Intake and Output: 10/16/18 10/16/18 06:59 18:59 Intake Total 1000 Balance 1000 - Medications Medications: Current Medications Hydromorphone HCl (Dilaudid) 0.5 mg IVP Q6H PRN PRN Reason: Pain, severe (8-10) Sodium Chloride (Sodium Chloride 0.9%) 1,000 mls @ 200 mls/hr IV .Q5H CATRACHITO Last Admin: 10/16/18 14:19 Dose: 200 mls/hr Influenza Virus Vaccine (Flucelvax Quad [id number] Syr) 60 mcg IM .ONCE ONE Stop: 10/18/18 10:01 Lorazepam (Ativan) 0.5 mg IVP ONCE PRN PRN Reason: Anxiety Last Admin: 10/16/18 15:08 Dose: 0.5 mg - Labs Labs: 10/16/18 06:41 10/16/18 06:41 PT 12.7 SECONDS (9.7-12.2) H 10/16/18 09:45 INR 1.2 10/16/18 09:45 APTT 34 SECONDS (21-34) 10/16/18 09:45 Attending/Attestation - Attestation I have personally seen and examined this patient.: Yes I have fully participated in the care of the patient.: Yes I have reviewed all pertinent clinical information, including history, physical exam and plan: Yes Notes (Text): Patient seen, examined, and case discussed day-time resident. patient noted for abdominal pain on exam which she reports started one day ago. She reports she has had a cholecystectomy at [facility] in 2013? Patient reports her last period on october 02. GI and General surgery on board. patient is hesistant about the MRCP, she reports she wants to sleep through the test, will give anti-anxiety, and explained MRCP needed to see the belly better. 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 less likely pancreatic. * CT abdomen/pelvis (10/15/18): lobulated low attenuation structure noted adjacen t to the pancreatic head cannot be from the duodenum and pancreatic head. Suspicious round cystic structure at the joshua hepatis region/gallbadder fossa measures 1.6 cm. No evidence of intrahepatic biliary ductal dilatation or evidence of acute cholecystits. diffuse gastric and proximal small bowel thickening. At least 2 foci of small yuni intuscception. moderately dilated small bowel loops at the right upper abdomen demonstrate diffuse wall thickening. Suspicous for the small bowel malrotation associated with siwrl appearance of mesenteric vessels in the right abdomen. No evidence of hgi grade bowel obstruction * Gallbladder US (10/16/18): gallbladder is not clearly visulized. mildly echogenic liver. suspicious for small amount of fluid or cystic strucure at the gallbladder fossa. further evaluation by MRCP is suggested * Chest xray: no active disease * Lactic acid: 0.8 * AFP: 0.9 * CA 19-9: 8.2 2) Hypokalemia Assessment/Plan * monitor and replete 3) Anemia Assessment/Plan * check ferritin, reticulocyte count, iron studies 4) Low vitamin B12 Assessment/Plan 5) Hepatomegaly on CT scan Assessment/Plan * Hepatitis panel negative * HIV negative 6) Prophylactic measure * IV fluids * Dilaudid 0.5mg IVP Q6H PRN severe pain * scds b/l * protonix 40mg IV q daily for GI ppx * NPO diet * Hypoglycemic protocol * Accuchecks Q6H <Curtis Riggins - Last Filed: 10/16/18 19:08> Subjective - Date & Time of Evaluation Date of Evaluation: 10/16/18 Time of Evaluation: 10:00 - Subjective Subjective: Medicine progress note for Dr. Palacio Pt seen and examined at bedside. Pt resting comfortably. Denies complaints at this time. Denies fever, chills, chest pain, sob, abdominal pain, n/v/d, hematochezia, melena, headache, numbness, tingling, dizziness. Objective - Vital Signs/Intake and Output Vital Signs (last 24 hours): Temp Pulse Resp BP Pulse Ox 98.4 F 71 20 98/57 L 97 10/16/18 01:50 10/16/18 01:50 10/16/18 01:50 10/16/18 06:09 10/16/18 05:45 Intake and Output: 10/16/18 10/16/18 06:59 18:59 Intake Total 1000 Balance 1000 - Medications Medications: Current Medications Hydromorphone HCl (Dilaudid) 0.5 mg IVP Q6H PRN PRN Reason: Pain, severe (8-10) Sodium Chloride (Sodium Chloride 0.9%) 1,000 mls @ 100 mls/hr IV .Q10H CATRACHITO Last Admin: 10/16/18 06:45 Dose: 100 mls/hr Influenza Virus Vaccine (Flucelvax Quad [id number] Syr) 60 mcg IM .ONCE ONE Stop: 10/18/18 10:01 - Labs Labs: 10/16/18 06:41 10/15/18 17:17 - Constitutional Appears: Non-toxic, No Acute Distress - Head Exam Head Exam: ATRAUMATIC, NORMAL INSPECTION - Eye Exam Eye Exam: EOMI, Normal appearance. absent: Scleral icterus - ENT Exam ENT Exam: Mucous Membranes Moist - Respiratory Exam Respiratory Exam: Clear to Ausculation Bilateral. absent: Rales, Rhonchi, Wheezes, Stridor - Cardiovascular Exam Cardiovascular Exam: REGULAR RHYTHM, +S1, +S2 - GI/Abdominal Exam GI & Abdominal Exam: Soft, Tenderness (epigastric and LUQ tenderness), Normal Bowel Sounds. absent: Distended, Firm, Guarding, Rigid, Rebound - Extremities Exam Extremities Exam: Normal Capillary Refill, Normal Inspection. absent: Calf Tenderness, Pedal Edema, Tenderness - Back Exam Back Exam: NORMAL INSPECTION - Neurological Exam Neurological Exam: Alert, Awake, Oriented x3 - Psychiatric Exam Psychiatric exam: Normal Affect, Normal Mood - Skin Skin Exam: Dry, Normal Color, Warm Additional comments: (-) jaundice Assessment and Plan - Assessment and Plan (Free Text) Assessment: Abdominal Pain Abdominal Mass Assessment/plan * GI, Dr. Baker, on board help appreciated * General surgery, Dr. Tang, on board help appreciated * MCRP (10/16/18); mulilocular cystic mass at the level of ampulla/2nd duodenum without demonstrate enhancement. 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 less likely pancreatic. * CT abdomen/pelvis (10/15/18): lobulated low attenuation structure noted adjacent to the pancreatic head cannot be from the duodenum and pancreatic head. Suspicious round cystic structure at the joshua hepatis region/gallbadder fossa measures 1.6 cm. No evidence of intrahepatic biliary ductal dilatation or evidence of acute cholecystits. diffuse gastric and proximal small bowel thickening. At least 2 foci of small yuni intuscception. moderately dilated small bowel loops at the right upper abdomen demonstrate diffuse wall thickening. Suspicous for the small bowel malrotation associated with siwrl appearance of mesenteric vessels in the right abdomen. No evidence of hgi grade bowel obstruction * Gallbladder US (10/16/18): gallbladder is not clearly visulized. mildly echogenic liver. suspicious for small amount of fluid or cystic strucure at the gallbladder fossa. further evaluation by MRCP is suggested * Chest xray: no active disease * lipase normal at 27 * Lactic acid: 0.8 * AFP: 0.9 * CA 19-9: 8.2 Hypokalemia Assessment/Plan * monitor and replete Anemia Assessment/Plan * Iron low at 27, TIBC normal at 369, %sat is low at 7, ferritin normal at 9.2 * f/u reticulocyte count, iron studies Low vitamin B12 Assessment/Plan Hepatomegaly on CT scan Assessment/Plan * Hepatitis panel negative * HIV negative * GI following Prophylactic measure * IV fluids * Dilaudid 0.5mg IVP Q6H PRN severe pain * scds b/l * protonix 40mg IV q daily for GI ppx * NPO diet * Hypoglycemic protocol * Accuchecks Q6H
[2018-10-16 07:56] LABS: ALB/GLOB RATIO 1.1 (1.0-2.1); ALT/SGPT 13 U/L (9-52); AST/SGOT 13 U/L (14-36); BLOOD UREA NITROGEN 6 mg/dL (7-17); CALCIUM 7.2 mg/dl (8.6-10.4); GFR NON-AFRICAN AMERICAN > 60
--- NOTE | 2018-10-16 08:01 | CP.PCM.CON ---
<Virginia Henry - Last Filed: 10/16/18 10:57> History of Present Illness - History of Present Illness History of Present Illness: Gastroenterology Fellow/PGY6 Consult Note 33 year old female with PMH of open cholecystectomy 2009 and Pancreatitis (~2011, unclear etiology) presenting with epigastric pain. Patient describes eating a fried egg friday night followed by epigastric pain to right upper abdomen friday morning upon awakening. States the pain was more severe than pain associated with cholecystectomy and prior pancreatitis. At present, the pain has improved and is only present Denies nausea, vomiting, hematemesis, heartburn, acid reflux, indigestion, bloating, diarrhea, constipation, melena, hematochezia, unintentional weight loss, yellowing of skin/eyes, sick contacts, recent travel, or new medications. Patient has three children and is currently youngest child born in 2017 that is 22 months old. No prior EGD or colonoscopy. Family History- confirms no history of malignancies in any family members Social History- denies tobacco, alcohol, illicit drug use presently or in the past Surgical History- open cholecystectomy 2009 Review of Systems - Review of Systems Review of Systems: 12-point review of systems negative except for as above Past Patient History - Infectious Disease Hx of Infectious Diseases: None - Past Social History Smoking Status: Never Smoked - PSYCHIATRIC Hx Substance Use: No - SURGICAL HISTORY Hx Cholecystectomy: Yes - ANESTHESIA Hx Anesthesia: Yes Hx Anesthesia Reactions: No Meds Allergies/Adverse Reactions: Allergies Allergy/AdvReac Type Severity Reaction Status Date / Time No Known Allergies Allergy Verified 10/15/18 15:56 - Medications Medications: Current Medications Hydromorphone HCl (Dilaudid) 0.5 mg IVP Q6H PRN PRN Reason: Pain, severe (8-10) Sodium Chloride (Sodium Chloride 0.9%) 1,000 mls @ 100 mls/hr IV .Q10H CATRACHITO Last Admin: 10/16/18 06:45 Dose: 100 mls/hr Influenza Virus Vaccine (Flucelvax Quad 6898-1879 Syr) 60 mcg IM .ONCE ONE Stop: 10/18/18 10:01 Physical Exam - Constitutional Appears: Non-toxic, No Acute Distress - Head Exam Head Exam: ATRAUMATIC, NORMOCEPHALIC - Eye Exam Eye Exam: EOMI, PERRL. absent: Scleral icterus Pupil Exam: PERRL. absent: Miosis, Mydriatic - ENT Exam ENT Exam: Mucous Membranes Moist, Normal Oropharynx - Neck Exam Neck exam: Positive for: Full Rom, Normal Inspection - Respiratory Exam Respiratory Exam: Clear to Auscultation Bilateral. absent: Rales, Rhonchi, Wheezes - Cardiovascular Exam Cardiovascular Exam: RRR, +S1, +S2. absent: Gallop, Rubs - GI/Abdominal Exam GI & Abdominal Exam: Normal Bowel Sounds, Soft, Tenderness. absent: Distended, Guarding, Organomegaly, Rebound, Rigid Additional comments: mild epigastric and RUQ tenderness to palpation - Extremities Exam Extremities exam: Positive for: normal inspection. Negative for: pedal edema - Neurological Exam Neurological exam: Alert - Psychiatric Exam Psychiatric exam: Normal Affect, Normal Mood - Skin Skin Exam: Dry, Intact, Normal Color, Warm Results - Vital Signs Recent Vital Signs: Last Vital Signs Temp 98.4 F 10/16/18 01:50 Pulse 71 10/16/18 01:50 Resp 20 10/16/18 01:50 BP 98/57 L 10/16/18 06:09 Pulse Ox 97 10/16/18 05:45 - Labs Result Diagrams: 10/16/18 06:41 10/16/18 06:41 Labs: Laboratory Results - last 24 hr 10/15/18 10/15/18 10/15/18 17:17 17:17 17:17 WBC 9.4 RBC 4.31 Hgb 11.6 Hct 35.9 MCV 83.3 D MCH 27.0 MCHC 32.3 L RDW 15.0 H Plt Count 262 MPV 9.4 Neut % (Auto) 63.1 Lymph % (Auto) 30.4 [place] % (Auto) 5.9 Eos % (Auto) 0.4 Baso % (Auto) 0.2 Neut # (Auto) 6.0 Lymph # (Auto) 2.9 [place] # (Auto) 0.6 Eos # (Auto) 0.0 Baso # (Auto) 0.0 Sodium 136 Potassium 3.6 Chloride 100 Carbon Dioxide 28 Anion Gap 12 BUN 6 L Creatinine 0.4 L Est GFR ( Amer) > 60 Est GFR (Non-Af Amer) > 60 Random Glucose 90 Calcium 8.3 L Total Bilirubin 0.4 AST 14 ALT 9 D Alkaline Phosphatase 93 Total Protein 7.2 Albumin 4.2 Globulin 3.0 Albumin/Globulin Ratio 1.4 Urine Color Yellow Urine Clarity Clear Urine pH 7.0 Ur Specific [place] 1.005 Urine Protein Negative Urine Glucose (UA) Normal Urine Ketones Negative Urine Blood 1+ H Urine Nitrate Negative Urine Bilirubin Negative Urine Urobilinogen 2.0 H Ur Leukocyte Esterase Neg Urine WBC (Auto) < 1 Urine RBC (Auto) < 1 Ur Squamous Epith Cells 2 Urine Bacteria Rare Urine HCG, Qual Negative 10/16/18 06:41 WBC 6.1 RBC 3.55 L Hgb 9.7 L Hct 29.8 L MCV 84.0 MCH 27.3 MCHC 32.5 L RDW 15.2 H Plt Count 209 MPV 9.7 Neut % (Auto) 50.9 Lymph % (Auto) 41.3 H [place] % (Auto) 6.8 Eos % (Auto) 0.8 Baso % (Auto) 0.2 Neut # (Auto) 3.1 Lymph # (Auto) 2.5 [place] # (Auto) 0.4 Eos # (Auto) 0.1 Baso # (Auto) 0.0 Sodium Potassium Chloride Carbon Dioxide Anion Gap BUN Creatinine Est GFR ( Amer) Est GFR (Non-Af Amer) Random Glucose Calcium Total Bilirubin AST ALT Alkaline Phosphatase Total Protein Albumin Globulin Albumin/Globulin Ratio Urine Color Urine Clarity Urine pH Ur Specific [place] Urine Protein Urine Glucose (UA) Urine Ketones Urine Blood Urine Nitrate Urine Bilirubin Urine Urobilinogen Ur Leukocyte Esterase Urine WBC (Auto) Urine RBC (Auto) Ur Squamous Epith Cells Urine Bacteria Urine HCG, Qual Assessment & Plan - Assessment and Plan (Free Text) Assessment: 33 year old female with PMH of open cholecystectomy 2009 and Pancreatitis (~2011) presenting with epigastric pain. CT A/P PO/IV contrast showing 1.6cm joshua hepatis/gallbladder fossa cystic lesion, and a lobulated cystic lesion adjacent to pancreatic head and not from pancreatic head and descending duodenum, diffuse gastric and small bowel thickening with two foci of small bowel intussusception and suspicion for small bowel malrotation associated with swirl appearance of the mesenteric vessels in the right abdomen. No prior EGD or colonoscopy. Plan: -ordered MRCP & MRI Abdomen w/wo contrast for further delineation -Differential- duodenal mass, CBD lesion, pancreatic lesion- solid pseudopapillary neoplasm, MCN, IPMN, choledochoal cyst, cystadenoma -normal lipase, LFTs and bilirubin -surgery consult- follow up recommendations -supportive care: pain control, PPI ACB -patient refusing to go to MRCP, extensive counselling provided at bedside on need for MRCP -will benefit from elective outpatient EGD/EUS for further evaluation -follow clinical course <Mac Baker - Last Filed: 10/16/18 12:02> Meds - Medications Medications: Current Medications Hydromorphone HCl (Dilaudid) 0.5 mg IVP Q6H PRN PRN Reason: Pain, severe (8-10) Sodium Chloride (Sodium Chloride 0.9%) 1,000 mls @ 200 mls/hr IV .Q5H CATRACHITO Last Admin: 10/16/18 09:13 Dose: Not Given Potassium Chloride (Potassium Chloride 20 Meq/100 Ml) 20 meq in 100 mls @ 50 mls/hr IVPB Q2H CATRACHITO Stop: 10/16/18 12:14 Last Admin: 10/16/18 09:12 Dose: 50 mls/hr Influenza Virus Vaccine (Flucelvax Quad [id number] Syr) 60 mcg IM .ONCE ONE Stop: 10/18/18 10:01 Lorazepam (Ativan) 0.5 mg IVP ONCE PRN PRN Reason: Anxiety Results - Vital Signs Recent Vital Signs: Last Vital Signs Temp 97.8 F 10/16/18 08:02 Pulse 68 10/16/18 08:02 Resp 20 10/16/18 08:02 BP 95/58 L 10/16/18 08:02 Pulse Ox 97 10/16/18 08:02 - Labs Result Diagrams: 10/16/18 06:41 10/16/18 06:41 Labs: Laboratory Results - last 24 hr 10/15/18 10/15/18 10/15/18 17:17 17:17 17:17 WBC 9.4 RBC 4.31 Hgb 11.6 Hct 35.9 MCV 83.3 D MCH 27.0 MCHC 32.3 L RDW 15.0 H Plt Count 262 MPV 9.4 Neut % (Auto) 63.1 Lymph % (Auto) 30.4 [place] % (Auto) 5.9 Eos % (Auto) 0.4 Baso % (Auto) 0.2 Neut # (Auto) 6.0 Lymph # (Auto) 2.9 [place] # (Auto) 0.6 Eos # (Auto) 0.0 Baso # (Auto) 0.0 PT INR APTT Sodium 136 Potassium 3.6 Chloride 100 Carbon Dioxide 28 Anion Gap 12 BUN 6 L Creatinine 0.4 L Est GFR ( Amer) > 60 Est GFR (Non-Af Amer) > 60 Random Glucose 90 Lactic Acid Calcium 8.3 L Phosphorus Magnesium Total Bilirubin 0.4 AST 14 ALT 9 D Alkaline Phosphatase 93 Total Protein 7.2 Albumin 4.2 Globulin 3.0 Albumin/Globulin Ratio 1.4 Lipase Alpha Fetoprotein CA 19-9 Antigen Urine Color Yellow Urine Clarity Clear Urine pH 7.0 Ur Specific [place] 1.005 Urine Protein Negative Urine Glucose (UA) Normal Urine Ketones Negative Urine Blood 1+ H Urine Nitrate Negative Urine Bilirubin Negative Urine Urobilinogen 2.0 H Ur Leukocyte Esterase Neg Urine WBC (Auto) < 1 Urine RBC (Auto) < 1 Ur Squamous Epith Cells 2 Urine Bacteria Rare Urine HCG, Qual Negative 10/16/18 10/16/18 10/16/18 06:41 06:41 09:45 WBC 6.1 RBC 3.55 L Hgb 9.7 L Hct 29.8 L MCV 84.0 MCH 27.3 MCHC 32.5 L RDW 15.2 H Plt Count 209 MPV 9.7 Neut % (Auto) 50.9 Lymph % (Auto) 41.3 H [place] % (Auto) 6.8 Eos % (Auto) 0.8 Baso % (Auto) 0.2 Neut # (Auto) 3.1 Lymph # (Auto) 2.5 [place] # (Auto) 0.4 Eos # (Auto) 0.1 Baso # (Auto) 0.0 PT 12.7 H INR 1.2 APTT 34 Sodium 136 Potassium 3.3 L Chloride 106 Carbon Dioxide 22 Anion Gap 12 BUN 6 L Creatinine 0.4 L Est GFR ( Amer) > 60 Est GFR (Non-Af Amer) > 60 Random Glucose 75 Lactic Acid Calcium 7.2 L Phosphorus 2.9 Magnesium 2.1 Total Bilirubin 0.4 AST 13 L ALT 13 Alkaline Phosphatase 71 Total Protein 5.6 L Albumin 3.0 L D Globulin 2.6 Albumin/Globulin Ratio 1.1 Lipase 27 Alpha Fetoprotein CA 19-9 Antigen 8.2 Urine Color Urine Clarity Urine pH Ur Specific [place] Urine Protein Urine Glucose (UA) Urine Ketones Urine Blood Urine Nitrate Urine Bilirubin Urine Urobilinogen Ur Leukocyte Esterase Urine WBC (Auto) Urine RBC (Auto) Ur Squamous Epith Cells Urine Bacteria Urine HCG, Qual 10/16/18 10/16/18 09:45 09:45 WBC RBC Hgb Hct MCV MCH MCHC RDW Plt Count MPV Neut % (Auto) Lymph % (Auto) [place] % (Auto) Eos % (Auto) Baso % (Auto) Neut # (Auto) Lymph # (Auto) [place] # (Auto) Eos # (Auto) Baso # (Auto) PT INR APTT Sodium Potassium Chloride Carbon Dioxide Anion Gap BUN Creatinine Est GFR ( Amer) Est GFR (Non-Af Amer) Random Glucose Lactic Acid 0.8 Calcium Phosphorus Magnesium Total Bilirubin AST ALT Alkaline Phosphatase Total Protein Albumin Globulin Albumin/Globulin Ratio Lipase Alpha Fetoprotein 0.9 CA 19-9 Antigen Urine Color Urine Clarity Urine pH Ur Specific [place] Urine Protein Urine Glucose (UA) Urine Ketones Urine Blood Urine Nitrate Urine Bilirubin Urine Urobilinogen Ur Leukocyte Esterase Urine WBC (Auto) Urine RBC (Auto) Ur Squamous Epith Cells Urine Bacteria Urine HCG, Qual Attending/Attestation - Attestation I have personally seen and examined this patient.: Yes I have fully participated in the care of the patient.: Yes I have reviewed all pertinent clinical information: Yes Notes (Text): 10/16/18 11:53 I have seen and examined patient with GI fellow. Agree with above documentation with the following additions. In brief, this is a 33 year old female with history of cholecystectomy, pancreatitis (unclear etiology) who presents to hospital with complaint of abdominal pain. She reports sharp, 8/10 intensity epigastric pain that started 3 days ago following consumption of a fried egg. Her pain moderately improved the day after, however due to persistent discomfort she came to hospital. She denies nausea, vomiting, fever/chills, weight loss, rectal bleeding, jaundice, pruritis, or change in bowel habits. She adamantly denies ETOH use. No prior endoscopic evaluation. Review of vitals from today are normal. History of cholecystectomy, pancreatitis Abdominal pain CT imaging reviewed by me showing small bowel intussusception, lobulated cystic structure at pancreatic head abutting duodenum, cystic lesion in region of GB fossa. No intra or extrahepatic biliary dilation noted. - Diet as tolerated - Differential of cystic lesions in this scenario are broad, patient would benefit from contrast enhanced MRI for further evaluation and characterization of lesions - LFTs normal, continue to monitor - Follow up surgical recommendations regarding intussusception - Pending results of imaging, would consider EGD/EUS for further evaluation - Will continue to monitor patient clinical course
--- NOTE | 2018-10-16 08:23 | CP.PCM.PN ---
Subjective - Date & Time of Evaluation Date of Evaluation: 10/16/18 Time of Evaluation: 08:18 - Subjective Subjective: General Surgery - Dr. Tang PT S&E> NAEO. PT states her pain has resolved. She denies any Nausea/vomiting/fever/chills/sob/chest pain. Made aware of NPO for MRCP. Objective - Vital Signs/Intake and Output Vital Signs (last 24 hours): Temp Pulse Resp BP Pulse Ox 97.8 F 68 20 95/58 L 97 10/16/18 08:02 10/16/18 08:02 10/16/18 08:02 10/16/18 08:02 10/16/18 08:02 Intake and Output: 10/16/18 10/16/18 06:59 18:59 Intake Total 1000 Balance 1000 - Medications Medications: Current Medications Hydromorphone HCl (Dilaudid) 0.5 mg IVP Q6H PRN PRN Reason: Pain, severe (8-10) Sodium Chloride (Sodium Chloride 0.9%) 1,000 mls @ 200 mls/hr IV .Q5H CATRACHITO Potassium Chloride (Potassium Chloride 20 Meq/100 Ml) 20 meq in 100 mls @ 50 mls/hr IVPB Q2H CATRACHITO Stop: 10/16/18 12:14 Influenza Virus Vaccine (Flucelvax Quad 8090-8651 Syr) 60 mcg IM .ONCE ONE Stop: 10/18/18 10:01 - Labs Labs: 10/16/18 06:41 10/16/18 06:41 - Constitutional Appears: Well, No Acute Distress - Head Exam Head Exam: ATRAUMATIC, NORMAL INSPECTION, NORMOCEPHALIC - Eye Exam Eye Exam: Normal appearance - Respiratory Exam Respiratory Exam: NORMAL BREATHING PATTERN. absent: Respiratory Distress - Cardiovascular Exam Cardiovascular Exam: REGULAR RHYTHM - GI/Abdominal Exam GI & Abdominal Exam: Soft. absent: Distended, Guarding, Rigid, Tenderness, Rebo und Additional comments: donna incision - Neurological Exam Neurological Exam: Alert, Oriented x3 - Psychiatric Exam Psychiatric exam: Normal Affect, Normal Mood Assessment and Plan - Assessment and Plan (Free Text) Assessment: 33F with abdominal pain, CT findings of intussusception and pancreatic head lesion vs. choledochal cyst Plan: -NPO for MRI -F/U MRCP today -F/U GI reccs -No acute surgery planned, will follow NEHEMIAH Sepulveda PGY4
[2018-10-16 08:46] LABS: LIPASE 27 U/L (23-300)
--- NOTE | 2018-10-16 08:54 | CT ---
Date of service: 10/15/2018 PROCEDURE: CT Abdomen and Pelvis with contrast HISTORY: abd pain COMPARISON: Comparison is made to the previous study dated 12/09/2011 TECHNIQUE: Contrast dose: 100 mL of Omnipaque 350 intravenously. Axial and reformatted coronal and sagittal CT images of the abdomen and pelvis were obtained after IV and oral contrast administration. Radiation dose: Total exam DLP = 409.36 mGy-cm. This CT exam was performed using one or more of the following dose reduction techniques: Automated exposure control, adjustment of the mA and/or kV according to patient size, and/or use of iterative reconstruction technique. FINDINGS: LOWER THORAX: No evidence of acute pathology. LIVER: Hepatomegaly is noted. The portal vein is patent. No evidence of significant intrahepatic biliary ductal dilatation. GALLBLADDER AND BILE DUCTS: No definite CT evidence of acute cholecystitis. This suspicious for cystic structure at the joshua hepatis region and gallbladder fossa measures 1.6 centimeter. PANCREAS: The main pancreatic duct is not dilated. There are lobulated low-attenuation cystic structure adjacent to the pancreatic head and descending duodenum of uncertain etiology. The differential consideration includes duodenal mass or distal common bile duct cystic structure/mass. The possibility of pancreatic head neoplasm is less likely. SPLEEN: Unremarkable. ADRENALS: Unremarkable. No mass. KIDNEYS AND URETERS: Unremarkable. No hydronephrosis. No solid mass. VASCULATURE: Unremarkable. No aortic aneurysm. No aortic atherosclerotic calcification or mural plaque present. BOWEL: There is diffuse gastric and proximal small bowel wall thickening. There are at least 2 small bowel small bowel intussusception noted at the mid and upper abdomen. There is suspicious for malrotation of the small bowel with abnormal position of the ligament of Treitz. There is moderately dilated small bowel loops at the mid to upper right abdomen demonstrate diffuse wall thickening. The oral contrast reached the mid and distal small bowel loops therefore there is no evidence of high-grade small bowel obstruction. Mild constipation in the large bowel is noted. APPENDIX: There is no evidence of appendicitis. PERITONEUM: Unremarkable. No free fluid. No free air. LYMPH NODES: Unremarkable. No enlarged lymph nodes. BLADDER: Unremarkable. REPRODUCTIVE: Unremarkable. BONES: No acute fracture. OTHER FINDINGS: None. IMPRESSION: Lobulated low-attenuation structure noted adjacent to the pancreatic head cannot be from the duodenum and pancreatic head. The differential consideration includes duodenal mass versus distal common bile duct cystic lesion versus less likely exophytic pancreatic head cystic lesion. If clinically warranted further evaluation by MRCP with and without contrast may be obtained. Suspicious for round cystic structure at the joshua hepatis region/gallbladder fossa measures 1.6 centimeter. No evidence of intrahepatic biliary ductal dilatation or evidence of acute cholecystitis. Diffuse gastric and proximal small bowel wall thickening. At least 2 foci of small bowel small bowel intussusception. Moderately dilated small bowel loops at the right upper abdomen demonstrate diffuse wall thickening. Suspicious for small bowel malrotation associated with swirl appearance of the mesenteric vessels in the right abdomen. No evidence of high-grade bowel obstruction. Close follow-up and further evaluation is recommended. Preliminary report was submitted by [facility] Radiology contains concordant findings.
[2018-10-16] MEDS: Sodium Chloride 0.9% 1,000 ML IV SCH ×4 (09:13→23:32)
[2018-10-16 10:03] LABS: INR 1.2; PROTHROMBIN TIME 12.7 SECONDS (9.7-12.2)
--- NOTE | 2018-10-16 12:19 | RAD ---
Date of service: 10/16/2018 HISTORY: pre op COMPARISON: 10/21/2014 TECHNIQUE: 1 view obtained. FINDINGS: LUNGS: No active pulmonary disease. PLEURA: No significant pleural effusion identified, no pneumothorax apparent. CARDIOVASCULAR: No aortic atherosclerotic calcification present. Normal cardiac size. No pulmonary vascular congestion. OSSEOUS STRUCTURES: No significant abnormalities. VISUALIZED UPPER ABDOMEN: Normal. OTHER FINDINGS: None. IMPRESSION: No active disease.
--- NOTE | 2018-10-16 12:29 | US ---
Date of service: 10/15/2018 HISTORY: ruq COMPARISON: Comparison is made to the previous CT dated 10/15/2018 TECHNIQUE: Sonographic evaluation of the right upper quadrant of the abdomen. FINDINGS: LIVER: Measures 14 cm in length. Mild increased echogenicity of the liver parenchyma. No mass. No intrahepatic bile duct dilatation. GALLBLADDER: Not clearly visualized. COMMON BILE DUCT: Measures 5.6 mm. No stones. No dilatation. PANCREAS: Partially visualized due to overlying bowel gas RIGHT KIDNEY: Measures 11.3 x 5.2 x 4.5 cm in length. Normal echogenicity. No calculus, mass, or hydronephrosis. AORTA: No aneurysmal dilatation. IVC: Unremarkable. OTHER FINDINGS: None . IMPRESSION: The gallbladder is not clearly visualized. Correlate clinically for prior cholecystectomy. Mildly echogenic liver. Suspicious for small amount of fluid or cystic structure at the gallbladder fossa. Further evaluation by MRCP is suggested. Preliminary report was submitted by [facility] Radiology contains concordant findings.
[2018-10-16 13:33] LABS: % IRON SATURATION 7 (20-55); IRON 27 ug/dL (37-170); TOTAL IRON BINDING CAPACITY 369 ug/dL (250-450)
[2018-10-16 13:52] LABS: HEPATITIS B SURFACE AG Negative (NEGATIVE)
[2018-10-16 13:58] LABS: HEPATITIS A IGM NEGATIVE (NEGATIVE); HEPATITIS B CORE AB NEGATIVE (NEGATIVE)
[2018-10-16 14:01] LABS: HIV 1&2 ANTIBODY NEGATIVE (NEGATIVE)
[2018-10-16 14:09] LABS: HEPATITIS C ANTIBODY NEGATIVE (NEGATIVE)
[2018-10-16 15:23] LABS: FERRITIN 9.2 ng/mL
[2018-10-16 15:53] LABS: FOLATE > 20.0 ng/mL
--- NOTE | 2018-10-16 17:02 | MRI ---
Date of service: 10/16/2018 PROCEDURE: Magnetic Resonance Cholangiopancreatography HISTORY: COMPARISON: CT abdomen/pelvis 10/15/2018 TECHNIQUE: Multiplanar, multisequence MR images of the abdomen were obtained, including heavily T2 weighted MRCP images of the biliary system. Rotating maximum intensity projection images of the biliary system were generated. FINDINGS: MRCP: The common bile duct is of a normal caliber. No evidence of choledocholithiasis. No intrahepatic biliary ductal dilatation. LIVER: Normal size, contour and signal intensity. No mass. No biliary dilatation. Smooth contour. GALLBLADDER: Cholecystectomy SPLEEN: Unremarkable. PANCREAS: Medial to the pancreatic head, at the level of the ampulla of [place], likely at least partially intraluminal in the 2nd duodenum, there is a multilocular mass, measuring approximately 2.2 cm in greatest dimension. The mass does not enhance following gadolinium administration. Portions of this mass are low in signal intensity on both T1 and T2 weighted sequences and other portions are low on T1 and high on T2. In retrospect, on CT of 10/16/2018, portion of this mass appears to be intraluminal within the 2nd portion of the duodenum, surrounded by oral contrast material. The mass may be duodenal in origin or may be arising from the ampulla. It does not appear likely to be of pancreatic origin. There is no pancreatic ductal dilatation. There is no peripancreatic fluid or edema appreciated. ADRENALS: Unremarkable. KIDNEYS: Unremarkable. AORTA: No aneurysm. ASCITES: None. OTHER FINDINGS: None. 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 Less likely pancreatic.
[2018-10-16] MEDS ORDERED: Dextrose 50% SYRINGE Inj (50 ml) IVP PRN (18:03)
[2018-10-16] MEDS ORDERED: Glucagon Recombinant 1 mg Inj IM PRN (18:03)
[2018-10-16] MEDS: HYDROmorphone 0.5 mg/0.5 ml ISec IVP PRN (22:51)
[2018-10-17] MEDS: Sodium Chloride 0.9% 1,000 ML IV SCH ×3 (03:58→13:22)
[2018-10-17] MEDS: HYDROmorphone 0.5 mg/0.5 ml ISec IVP PRN (05:12)
--- NOTE | 2018-10-17 07:44 | CP.PCM.PN ---
Subjective - Date & Time of Evaluation Date of Evaluation: 10/17/18 Time of Evaluation: 07:41 - Subjective Subjective: General Surgery - Dr. Tang Pt S&E. MANJINDER. Pt underwent MRCP yesterday, post procedure she was still NPO and therefore has not eaten since day prior. She states that she feels hungry and thirsty, diet ordered for this morning. She still complains of mild abdominal pain in the epigastric region, otherwise no complaints at this time. No fevers/chills/sob/chest pain. Objective - Vital Signs/Intake and Output Vital Signs (last 24 hours): Temp Pulse Resp BP Pulse Ox 98.3 F 75 20 103/66 96 10/17/18 00:00 10/17/18 00:00 10/17/18 00:00 10/17/18 00:00 10/17/18 04:07 Intake and Output: 10/17/18 10/17/18 06:59 18:59 Intake Total 1750 Balance 1750 - Medications Medications: Current Medications Dextrose (Dextrose 50% Inj) 0 ml IVP .STAT PRN; Protocol PRN Reason: Hypoglycemia Protocol Dextrose (Glutose 15) 0 gm PO .ONCE PRN; Protocol PRN Reason: Hypoglycemia Protocol Glucagon (Glucagen Diagnostic Kit) 0 mg IM .STAT PRN; Protocol PRN Reason: Hypoglycemia Protocol Hydromorphone HCl (Dilaudid) 0.5 mg IVP Q6H PRN PRN Reason: Pain, severe (8-10) Last Admin: 10/17/18 05:12 Dose: 0.5 mg Sodium Chloride (Sodium Chloride 0.9%) 1,000 mls @ 200 mls/hr IV .Q5H CATRACHITO Last Admin: 10/17/18 03:58 Dose: 200 mls/hr Dextrose (Dextrose 5% In Water 1000 Ml) 1,000 mls @ 0 mls/hr IV .Q0M PRN; Protocol PRN Reason: Hypoglycemia Protocol Influenza Virus Vaccine (Flucelvax Quad [id number] Syr) 60 mcg IM .ONCE ONE Stop: 10/18/18 10:01 Lorazepam (Ativan) 0.5 mg IVP ONCE PRN PRN Reason: Anxiety Last Admin: 10/16/18 15:08 Dose: 0.5 mg Pantoprazole Sodium (Protonix Inj) 40 mg IVP DAILY CATRACHITO - Labs Labs: 10/16/18 06:41 10/16/18 06:41 PT 12.7 SECONDS (9.7-12.2) H 10/16/18 09:45 INR 1.2 10/16/18 09:45 APTT 34 SECONDS (21-34) 10/16/18 09:45 - Constitutional Appears: Well, No Acute Distress - Head Exam Head Exam: ATRAUMATIC, NORMAL INSPECTION, NORMOCEPHALIC - Eye Exam Eye Exam: Normal appearance - Respiratory Exam Respiratory Exam: NORMAL BREATHING PATTERN. absent: Respiratory Distress - Cardiovascular Exam Cardiovascular Exam: REGULAR RHYTHM - GI/Abdominal Exam GI & Abdominal Exam: Soft. absent: Distended, Firm, Guarding, Rigid, Tenderness, Rebound - Neurological Exam Neurological Exam: Alert, Oriented x3 - Psychiatric Exam Psychiatric exam: Normal Affect, Normal Mood - Skin Skin Exam: Dry, Intact Assessment and Plan - Assessment and Plan (Free Text) Assessment: 33F with abdominal pain, CT findings of intussusception and pancreatic head lesion vs. choledochal cyst; MRCP yesterday with periampullary cystic lesion. Plan: -Resume diet and monitor tolerance -F/U GI reccs regarding MRCP findings -No acute surgery planned at this time, will follow Further reccs as per Dr Clyde Sepulveda PGY4
[2018-10-17 07:47] LABS: BASO % 0.1 % (0.0-2.0); EOS % 0.7 % (0.0-4.0); HEMOGLOBIN 10.3 g/dL (11.0-16.0); LYMPH # 2.2 K/uL (1.0-4.3); LYMPH % 38.7 % (20.0-40.0); MEAN CELL VOLUME 84.8 fL (81.0-99.0); MEAN PLATELET VOLUME 9.2 fL (7.2-11.7); MONO # 0.3 K/uL (0.0-0.8); MONO % 5.2 % (0.0-10.0); NEUT # 3.1 K/uL (1.8-7.0); NEUT % 55.3 % (50.0-75.0); NRBC % 0.1 % (0.0-2.0); RBC 3.66 Mil/uL (3.80-5.20); RED CELL DISTRIBUTION WIDTH 15.3 % (11.5-14.5); WHITE BLOOD COUNT 5.7 K/uL (4.8-10.8)
[2018-10-17 08:01] LABS: CERULOPLASMIN 46 mg/dL (18-53)
[2018-10-17 08:06] LABS: ALB/GLOB RATIO 1.2 (1.0-2.1); ALBUMIN 3.2 g/dL (3.5-5.0); ALT/SGPT 14 U/L (9-52); AST/SGOT 12 U/L (14-36); BLOOD UREA NITROGEN 3 mg/dL (7-17); CALCIUM 7.8 mg/dl (8.6-10.4); GFR NON-AFRICAN AMERICAN > 60
--- NOTE | 2018-10-17 11:40 | CP.PCM.PN ---
Objective - Vital Signs/Intake and Output Vital Signs (last 24 hours): Temp Pulse Resp BP Pulse Ox 97.8 F 76 20 100/62 96 10/17/18 07:44 10/17/18 07:44 10/17/18 07:44 10/17/18 07:44 10/17/18 08:23 Intake and Output: 10/17/18 10/17/18 06:59 18:59 Intake Total 1750 Balance 1750 - Medications Medications: Current Medications Dextrose (Dextrose 50% Inj) 0 ml IVP .STAT PRN; Protocol PRN Reason: Hypoglycemia Protocol Dextrose (Glutose 15) 0 gm PO .ONCE PRN; Protocol PRN Reason: Hypoglycemia Protocol Glucagon (Glucagen Diagnostic Kit) 0 mg IM .STAT PRN; Protocol PRN Reason: Hypoglycemia Protocol Hydromorphone HCl (Dilaudid) 0.5 mg IVP Q6H PRN PRN Reason: Pain, severe (8-10) Last Admin: 10/17/18 05:12 Dose: 0.5 mg Sodium Chloride (Sodium Chloride 0.9%) 1,000 mls @ 200 mls/hr IV .Q5H [facility] Last Admin: 10/17/18 08:36 Dose: Not Given Dextrose (Dextrose 5% In Water 1000 Ml) 1,000 mls @ 0 mls/hr IV .Q0M PRN; Protocol PRN Reason: Hypoglycemia Protocol Influenza Virus Vaccine (Flucelvax Quad 6068-3808 Syr) 60 mcg IM .ONCE ONE Stop: 10/18/18 10:01 Lorazepam (Ativan) 0.5 mg IVP ONCE PRN PRN Reason: Anxiety Last Admin: 10/16/18 15:08 Dose: 0.5 mg Pantoprazole Sodium (Protonix Inj) 40 mg IVP DAILY [facility] Last Admin: 10/17/18 09:21 Dose: 40 mg Pneumococcal Polyvalent Vaccine (Pneumovax 23 Vaccine) 0.5 ml IM .ONCE ONE Stop: 10/20/18 10:01 - Labs Labs: 10/17/18 07:26 10/17/18 07:26 PT 12.7 SECONDS (9.7-12.2) H 10/16/18 09:45 INR 1.2 10/16/18 09:45 APTT 34 SECONDS (21-34) 10/16/18 09:45
--- NOTE | 2018-10-17 11:56 | CP.PCM.PN ---
<Aj Arshad - Last Filed: 10/17/18 11:51> Subjective - Date & Time of Evaluation Date of Evaluation: 10/17/18 Time of Evaluation: 09:15 - Subjective Subjective: PGY-4 GI Fellow Prog Note Pt lying in bed when seen this AM. States abd pain is improved and is tolerating diet. Eager for possible DC. 5 point ROS negative other than stated above Objective - Vital Signs/Intake and Output Vital Signs (last 24 hours): Temp Pulse Resp BP Pulse Ox 97.8 F 76 20 100/62 96 10/17/18 07:44 10/17/18 07:44 10/17/18 07:44 10/17/18 07:44 10/17/18 08:23 Intake and Output: 10/17/18 10/17/18 06:59 18:59 Intake Total 1750 Balance 1750 - Medications Medications: Current Medications Dextrose (Dextrose 50% Inj) 0 ml IVP .STAT PRN; Protocol PRN Reason: Hypoglycemia Protocol Dextrose (Glutose 15) 0 gm PO .ONCE PRN; Protocol PRN Reason: Hypoglycemia Protocol Glucagon (Glucagen Diagnostic Kit) 0 mg IM .STAT PRN; Protocol PRN Reason: Hypoglycemia Protocol Hydromorphone HCl (Dilaudid) 0.5 mg IVP Q6H PRN PRN Reason: Pain, severe (8-10) Last Admin: 10/17/18 05:12 Dose: 0.5 mg Sodium Chloride (Sodium Chloride 0.9%) 1,000 mls @ 200 mls/hr IV .Q5H [facility] Last Admin: 10/17/18 08:36 Dose: Not Given Dextrose (Dextrose 5% In Water 1000 Ml) 1,000 mls @ 0 mls/hr IV .Q0M PRN; Protocol PRN Reason: Hypoglycemia Protocol Influenza Virus Vaccine (Flucelvax Quad 9877-4103 Syr) 60 mcg IM .ONCE ONE Stop: 10/18/18 10:01 Lorazepam (Ativan) 0.5 mg IVP ONCE PRN PRN Reason: Anxiety Last Admin: 10/16/18 15:08 Dose: 0.5 mg Pantoprazole Sodium (Protonix Inj) 40 mg IVP DAILY [facility] Last Admin: 10/17/18 09:21 Dose: 40 mg Pneumococcal Polyvalent Vaccine (Pneumovax 23 Vaccine) 0.5 ml IM .ONCE ONE Stop: 10/20/18 10:01 - Labs Labs: 10/17/18 07:26 10/17/18 07:26 PT 12.7 SECONDS (9.7-12.2) H 10/16/18 09:45 INR 1.2 10/16/18 09:45 APTT 34 SECONDS (21-34) 10/16/18 09:45 - Constitutional Appears: Well, No Acute Distress - Head Exam Head Exam: ATRAUMATIC, NORMAL INSPECTION - Eye Exam Eye Exam: EOMI. absent: Scleral icterus - ENT Exam ENT Exam: Mucous Membranes Moist. absent: Mucous Membranes Dry - Respiratory Exam Respiratory Exam: NORMAL BREATHING PATTERN. absent: Accessory Muscle Use, Respiratory Distress - GI/Abdominal Exam GI & Abdominal Exam: Soft, Normal Bowel Sounds. absent: Bruit, Distended, Firm, Guarding, Rigid, Tenderness, Mass, Organomegaly, Pulsatile Mass Assessment and Plan - Assessment and Plan (Free Text) Assessment: 33 year old female with PMH of open cholecystectomy 2009 and Pancreatitis (~2011) presenting with epigastric pain. CT A/P PO/IV contrast showing 1.6cm joshua hepatis/gallbladder fossa cystic lesion, and a lobulated cystic lesion adjacent to pancreatic head and not from pancreatic head and descending duodenum, diffuse gastric and small bowel thickening with two foci of small bowel intussusception and suspicion for small bowel malrotation associated with swirl appearance of the mesenteric vessels in the right abdomen. No prior EGD or colonoscopy. Plan: - MRCP & MRI Abdomen w/wo contrast with cystic lesion periampullary or within duodenum, not likely cystic neoplasm of pancreas - Will need endoscopic evaluation, can be done as outpatient - Pt expressed understanding of need for EGD, states she is in the process of completing [employer] insurance. She states she will make f/u appointment with GI doctor and a PCP. -Supportive care: pain control, PPI ACB -OK to DC today with oupatient follow-up Pt seen and examined with Dr. Alcala; please see attestation for further recs/changes. <Katherine Alcala - Last Filed: 10/17/18 21:22> Objective - Vital Signs/Intake and Output Vital Signs (last 24 hours): Temp Pulse Resp BP Pulse Ox 98 F 68 20 96/60 L 98 10/17/18 16:00 10/17/18 16:00 10/17/18 16:00 10/17/18 16:00 10/17/18 16:00 Intake and Output: 10/17/18 10/18/18 18:59 06:59 Intake Total 1900 Balance 1900 - Labs Labs: 10/17/18 07:26 10/17/18 07:26 PT 12.7 SECONDS (9.7-12.2) H 10/16/18 09:45 INR 1.2 10/16/18 09:45 APTT 34 SECONDS (21-34) 10/16/18 09:45 Attending/Attestation - Attestation I have personally seen and examined this patient.: Yes I have fully participated in the care of the patient.: Yes I have reviewed all pertinent clinical information, including history, physical exam and plan: Yes Notes (Text): 10/17/18 21:20 I have seen and examined patient with GI fellow. This is a 33 yo F with prior lap cholecystectomy and prior episode of pancreatitis p/w epigastric abdominal pain found to have possible intussusception as well as findings of cystic mass in the duodenum vs. ampulla. General: NAD Abd: soft, nt, nd Plan: -MRCP reviewed -will need EGD with possible EUS as an outpt -pt applied for [facility] care while here and decision pending -in the meantime, low fat diet -otherwise, stable for d/c from gi standpoint
[2018-10-17 16:12] VITALS: BP 96/60; PULSE 68; TEMP 98; O2SAT 98
--- NOTE | 2018-10-17 17:05 | CP.PCM.DIS ---
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 Hospital Course - Lab Results Lab Results: Micro Results 10/15/18 17:17 Urine Random Urine Culture - Final No Growth (<1,000 CFU/ML) Most Recent Lab Values WBC 5.7 K/uL (4.8-10.8) 10/17/18 07:26 RBC 3.66 Mil/uL (3.80-5.20) L 10/17/18 07:26 Hgb 10.3 g/dL (11.0-16.0) L 10/17/18 07:26 Hct 31.1 % (34.0-47.0) L 10/17/18 07:26 MCV 84.8 fL (81.0-99.0) 10/17/18 07:26 MCH 28.0 pg (27.0-31.0) 10/17/18 07:26 MCHC 33.0 g/dL (33.0-37.0) 10/17/18 07:26 RDW 15.3 % (11.5-14.5) H 10/17/18 07:26 Plt Count 235 K/uL (130-400) 10/17/18 07:26 MPV 9.2 fL (7.2-11.7) 10/17/18 07:26 Neut % (Auto) 55.3 % (50.0-75.0) 10/17/18 07:26 Lymph % (Auto) 38.7 % (20.0-40.0) 10/17/18 07:26 [place] % (Auto) 5.2 % (0.0-10.0) 10/17/18 07:26 Eos % (Auto) 0.7 % (0.0-4.0) 10/17/18 07:26 Baso % (Auto) 0.1 % (0.0-2.0) 10/17/18 07:26 Neut # (Auto) 3.1 K/uL (1.8-7.0) 10/17/18 07:26 Lymph # (Auto) 2.2 K/uL (1.0-4.3) 10/17/18 07:26 [place] # (Auto) 0.3 K/uL (0.0-0.8) 10/17/18 07:26 Eos # (Auto) 0.0 K/uL (0.0-0.7) 10/17/18 07:26 Baso # (Auto) 0.0 K/uL (0.0-0.2) 10/17/18 07:26 Retic Count 1.2 % (0.5-1.5) 10/16/18 19:55 PT 12.7 SECONDS (9.7-12.2) H 10/16/18 09:45 INR 1.2 10/16/18 09:45 APTT 34 SECONDS (21-34) 10/16/18 09:45 Sodium 135 mmol/L (132-148) 10/17/18 07:26 Potassium 3.7 mmol/L (3.6-5.2) 10/17/18 07:26 Chloride 109 mmol/L (98-107) H 10/17/18 07:26 Carbon Dioxide 21 mmol/L (22-30) L 10/17/18 07:26 Anion Gap 9 (10-20) L 10/17/18 07:26 BUN 3 mg/dL (7-17) L 10/17/18 07:26 Creatinine 0.3 mg/dL (0.7-1.2) L 10/17/18 07:26 Est GFR ( Amer) > 60 10/17/18 07:26 Est GFR (Non-Af Amer) > 60 10/17/18 07:26 Random Glucose 78 mg/dL (65-105) 10/17/18 07:26 Lactic Acid 0.8 mmol/L (0.7-2.1) 10/16/18 09:45 Calcium 7.8 mg/dl (8.6-10.4) L 10/17/18 07:26 Phosphorus 2.5 mg/dL (2.5-4.5) 10/17/18 07:26 Magnesium 2.3 mg/dL (1.6-2.3) 10/17/18 07:26 Iron 27 ug/dL (37-170) L 10/16/18 13:30 TIBC 369 ug/dL (250-450) 10/16/18 13:30 % Saturation 7 (20-55) L 10/16/18 13:30 Ferritin 8.9 ng/mL 10/16/18 19:55 Total Bilirubin 0.5 mg/dL (0.2-1.3) 10/17/18 07:26 AST 12 U/L (14-36) L 10/17/18 07:26 ALT 14 U/L (9-52) 10/17/18 07:26 Alkaline Phosphatase 72 U/L (38-126) 10/17/18 07:26 Total Protein 5.8 g/dL (6.3-8.3) L 10/17/18 07:26 Albumin 3.2 g/dL (3.5-5.0) L 10/17/18 07:26 Globulin 2.6 gm/dL (2.2-3.9) 10/17/18 07:26 Albumin/Globulin Ratio 1.2 (1.0-2.1) 10/17/18 07:26 Ceruloplasmin 46 mg/dL (18-53) 10/16/18 13:54 Lipase 27 U/L (23-300) 10/16/18 06:41 Alpha Fetoprotein 0.9 ng/mL (0.0-7.5) 10/16/18 09:45 CA 19-9 Antigen 8.2 U/mL (0-37) 10/16/18 06:41 Vitamin B12 < 159 pg/mL (239-931) L 10/16/18 06:41 Folate > 20.0 ng/mL 10/16/18 06:41 Urine Color Yellow (YELLOW) 10/15/18 17:17 Urine Clarity Clear (Clear) 10/15/18 17:17 Urine pH 7.0 (5.0-8.0) 10/15/18 17:17 Ur Specific [place] 1.005 (1.003-1.030) 10/15/18 17:17 Urine Protein Negative mg/dL (NEGATIVE) 10/15/18 17:17 Urine Glucose (UA) Normal mg/dL (Normal) 10/15/18 17:17 Urine Ketones Negative mg/dL (NEGATIVE) 10/15/18 17:17 Urine Blood 1+ (NEGATIVE) H 10/15/18 17:17 Urine Nitrate Negative (NEGATIVE) 10/15/18 17:17 Urine Bilirubin Negative (NEGATIVE) 10/15/18 17:17 Urine Urobilinogen 2.0 mg/dL (0.2-1.0) H 10/15/18 17:17 Ur Leukocyte Esterase Neg [place]/uL (Negative) 10/15/18 17:17 Urine WBC (Auto) < 1 /hpf (0-5) 10/15/18 17:17 Urine RBC (Auto) < 1 /hpf (0-3) 10/15/18 17:17 Ur Squamous Epith Cells 2 /hpf (0-5) 10/15/18 17:17 Urine Bacteria Rare (<OCC) 10/15/18 17:17 Urine HCG, Qual Negative (NEGATIVE) 10/15/18 17:17 Hepatitis A IgM Ab Negative (NEGATIVE) 10/16/18 13:47 Hep Bs Antigen Negative (NEGATIVE) 10/16/18 13:47 Hep B Core IgM Ab Negative (NEGATIVE) 10/16/18 13:47 Hepatitis C Antibody Negative (NEGATIVE) 10/16/18 13:47 HIV 1&2 Antibody Screen Negative (NEGATIVE) 10/16/18 13:30 - Hospital Course Hospital Course: On admission: 33 year old female presents to the ED complaining of severe R flank pain radiating to the RUQ that began 2 days ago. Pain is sharp and rated 8/10. Pain worsens with walking. She did not take anything at home for the pain. Patient states she had a similar pain years back when she was told that she had an inflamed pancreas. Pain is associated with chills. Patient denies fever, nausea, vomiting, diarrhea, constipation, hematochezia, melena, dysuria, hematuria, frequency, headache, dizziness, chest pain, palpitations and any other symptoms. Hospital course: CT abdomen/pelvis (10/15/18): lobulated low attenuation structure noted adjacent to the pancreatic head cannot be from the duodenum and pancreatic head. Suspicious round cystic structure at the joshua hepatis region/gallbadder fossa measures 1.6 cm. No evidence of intrahepatic biliary ductal dilatation or evidence of acute cholecystits. diffuse gastric and proximal small bowel thickening. At least 2 foci of small yuni intuscception. moderately dilated small bowel loops at the right upper abdomen demonstrate diffuse wall thickening. Suspicous for the small bowel malrotation associated with swirl appearance of mesenteric vessels in the right abdomen. No evidence of hgi grade bowel obstruction. Gallbladder US (10/16/18): gallbladder is not clearly visualized. mildly echogenic liver. suspicious for small amount of fluid or cystic structure at the gallbladder fossa. MRCP recommended. Pt placed NPO, started on IVF. Dilaudid for pain. GI, Dr. Baker, consulted. Surgery, Dr. Tang, consulted; who did not recommend surgery at this time. MCRP (10/16/18); mulilocular cystic mass at the level of ampulla/2nd duodenum without demonstrate enhancement. 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 less likely pancreatic. AFP, CA 19-9 normal. Hepatitis panel, HIV negative. Initial hypotension slightly improved, but pt reports she has low blood pressure at baseline. GI reports that pt needs EUS, which is not provided at this institution, and an EGD. On discharge interview, pt is tolerating PO. Denies fever, chills, chest pain, sob, abdominal pain, n/d/, headache, dizziness, lightheadedness, numbness or tingling, gait instability. Pt was discharged with information on follow up at [facility]. Provided with address and phone number, pt reports she will follow up as soon as possible. Instructed to return to nearest Emergency Department if symptoms return. This is a summary of the hospital course. Please see EMR for full details. Discharge Exam - Additional Findings Additional findings: - Constitutional Appears: Non-toxic, No Acute Distress - Head Exam Head Exam: ATRAUMATIC, NORMOCEPHALIC - Eye Exam Eye Exam: EOMI, PERRL. absent: Scleral icterus Pupil Exam: PERRL. absent: Miosis, Mydriatic - ENT Exam ENT Exam: Mucous Membranes Moist, Normal Oropharynx - Neck Exam Neck exam: Positive for: Full Rom, Normal Inspection - Respiratory Exam Respiratory Exam: Clear to Auscultation Bilateral. absent: Rales, Rhonchi, Whe ezes - Cardiovascular Exam Cardiovascular Exam: RRR, +S1, +S2. absent: Gallop, Rubs - GI/Abdominal Exam GI & Abdominal Exam: (+) large, well healed abdominal scar. Normal Bowel Sounds, Soft, Tenderness. absent: Distended, Guarding, Organomegaly, Rebound, Rigid Additional comments: mild epigastric and RUQ tenderness to palpation - Extremities Exam Extremities exam: Positive for: normal inspection. Negative for: pedal edema - Neurological Exam Neurological exam: Alert - Psychiatric Exam Psychiatric exam: Normal Affect, Normal Mood - Skin Skin Exam: Dry, Intact, Normal Color, Warm Discharge Plan - Follow Up Plan Condition: STABLE Disposition: HOME/ ROUTINE Instructions: Acute Abdomen (Belly Pain), Adult (DC), Acute Abdominal Pain (DC), Acute Abdominal Pain (GEN) Additional Instructions: Pt is medically stable for discharge home as per Dr. Palacio. Pt should take Tylenol OTC for pain, do not exceed maximum dose of 4g per day. Pt should follow up with PMD within 1 week of discharge. Pt should follow up with [facility] in [place], [place] for esophageal ultrasound and further management. Should symptoms worsen, please head to the nearest Emergency Department for further evaluation. Instructions explained to pt, who understands and agrees with discharge plan.
[2018-10-18] MEDS ORDERED: Influenza Vaccine 60 mcg/0.5 mL SYR (4YR UP) IM ONE (10:00)
[2018-10-18] MEDS ORDERED: Pneumococcal 23-Valent Vaccine IM ONE (10:00)
[2018-10-20] MEDS ORDERED: Pneumococcal 23-Valent Vaccine IM ONE (10:00)
== END 2018-10-17 18:00 | disposition home or self-care (01) ==
LOC: C.ER 15:47 → C.9E 10-16 00:25 → C.3T 10-16 00:56
PROVIDERS: ADMIT Family Medicine; ATTEND Family Medicine
DX: K56.1 Intussusception (principal); K86.9 Disease of pancreas, unspecified; Q43.3 Congenital malformations of intestinal fixation; Z82.49 Family history of ischemic heart disease and other diseases of the circulatory system; I95.9 Hypotension, unspecified; R16.0 Hepatomegaly, not elsewhere classified; D64.9 Anemia, unspecified; E87.6 Hypokalemia
CPT/HCPCS: 36415; 71045; 74177; 74183; 76705; 80053; 80074; 81001; 81025; 82105; 82390; 82607; 82728; 82746; 83516; 83540; 83550; 83605; 83690; 83735; 84100; 84703; 85025; 85044; 85610; 85730; 86038; 86255; 86301; 86703; 87086; 96361; 96374; 96375; 96376; 99285; A9579; C9113; G0378; J1170; J1885; J2060; J3480; J7030; Q9966; Q9967